=== PATIENT | male | born 1970 ===

== ENCOUNTER 2019-06-27 15:02 | Emergency (ER) | payer SELFPAY ==
--- NOTE | 2019-06-27 15:28 | RAD ---
EXAM: Chest PA and lateral: HISTORY: Chest pain COMPARISON: none FINDINGS: Lung salazar are clear. Vascular markings are normal. Heart and mediastinum appear unremarkable. Vascularity is normal. Osseous structures are unremarkable. IMPRESSION: Unremarkable chest
[2019-06-27 16:07] LABS: #Eosinphils 0.2 thou/uL (0.0-0.7); #Lymphocytes 2.1 thou/uL (1.20-3.40); #Monocytes 0.5 thou/uL (0.11-0.59); %Basophils 0.5 % (0.0-1.0); %Eosinophils 2.6 % (0.0-10.0); %Lymphocytes 30.7 % (21.0-51.0); %Monocytes 6.8 % (0.0-10.0); %Neutrophils 59.4 % (42.0-75.0); Hemoglobin 15.5 g/dL (14.0-18.0); Mean Corpuscular HGB CONC 35.8 g/dL (32.0-36.0); Mean Corpuscular Hemoglobin 33.2 pg (27.0-31.0); Mean Corpuscular Volume 92.5 fL (78.0-98.0); Mean Platelet Volume 7.4 fL (7.4-10.4); Platelet Count 183 thou/uL (130-400); RBC Distribution Width 11.6 % (11.5-14.5); Red Blood Cell (RBC) Count 4.66 mill/uL (4.70-6.10); White Blood Cell (WBC) Count 6.7 thou/uL (4.8-10.8)
[2019-06-27 16:34] LABS: ALT (SGPT) 52 U/L (8-55); AST (SGOT) 71 U/L (5-34); Albumin 4.3 g/dL (3.5-5.0); Alkaline Phosphatase 90 U/L (40-110); Anion Gap 16 mmol/L (10-20); BUN (Urea Nitrogen) 11 mg/dL (8.9-20.6); Bilirubin, Total 0.4 mg/dL (0.2-1.2); CK (CPK) 139 U/L (30-200); Calc. Creatinine Clearance 0 mL/min (70-130); Calcium 9.3 mg/dL (7.8-10.44); Carbon Dioxide 21 mmol/L (22-29); Chloride 100 mmol/L (98-107); Estimated GFR-MDRD Greater than 90; Globulin 4.1 g/dL (2.4-3.5); Glucose 232 mg/dL (70-105); Potassium 3.9 mmol/L (3.5-5.1); Protein, Total 8.4 g/dL (6.0-8.3); Sodium 133 mmol/L (136-145)
--- NOTE | 2019-06-30 12:11 | EKG ---
Test Reason : Blood Pressure : / mmHG Vent. Rate : 086 BPM Atrial Rate : 086 BPM P-R Int : 182 ms QRS Dur : 088 ms QT Int : 354 ms P-R-T Axes : 062 024 036 degrees QTc Int : 423 ms Normal sinus rhythm Normal ECG Confirmed by KEVIN HOFFMAN ([id number]), news assignment editor RSOIBEL GARCIA ([id number] on 06/30/2019 12:10:36 PM Referred By: Confirmed By:KEVIN HOFFMAN
== END 2019-06-27 17:39 | disposition home or self-care (01) ==
LOC: ERS 15:02
DX: R07.9 Chest pain, unspecified (principal); I10 Essential (primary) hypertension; E11.9 Type 2 diabetes mellitus without complications
CPT/HCPCS: 36415; 71046; 80053; 82550; 83690; 84484; 85025; 93005